=== PATIENT | male | born 1940 | race Caucasian/White ===

== ENCOUNTER 2016-12-17 16:51 | Inpatient (IN) | payer OTHER ==
--- NOTE | ~2016-12-17 | DS ---
Discharge Summary [facility] [address] [place]. [address] NAME: YSABEL DAMON JR : 38 STATUS : DIS IN PAT#: [id number] AGE: 76 ADM/REG DATE : 12/17/16 MR#: [id number] REPORT SERV DATE: 02/02/17 DICTATED BY: KANU FISCHER II DATE: 02/01/17 REPORT STATUS : Draft TRANSCRIBED BY: MODL DATE: 02/01/17 ADMISSION DATE: 12/17/2016 DISCHARGE DATE: 12/20/2016 DISCHARGE DIAGNOSES: 1. Hypercalcemia of malignancy. 2. Acute kidney injury. 3. Failure to thrive with severe protein-calorie malnutrition. 4. Metastatic xqc-kpgaw-pcep lung cancer. 5. Chronic obstructive pulmonary disease with chronic hypoxic respiratory failure. 6. Chronic right loculated effusion. 7. Hypertension. 8. Leukocytosis with likely pneumonia. 9. Anemia of chronic disease. CONSULTATIONS: Hospice. BRIEF HISTORY OF PRESENT ILLNESS: The patient is a 76-year-old male with the above history who presented to [facility] due to weakness, fatigue, dysphagia, weight loss, and falls. For detailed history and physical examination, please see my note from 12/15/2016. HOSPITAL COURSE: After admission, given the patient's elevated white count, he was placed on Levaquin and given IV fluids and pamidronate. His calcium which was 12 on admission trended down slightly and was 10.5 at the time of discharge. The patient had been coughing up greenish sputum, but seemed improved with Levaquin. He continued to be fairly weak with poor appetite, and given his metastatic non-small cell lung cancer and overall poor prognosis, his family elected to consult hospice, and as the patient wanted to go home as soon as possible, he was discharged with Levaquin on hospice. DISCHARGE MEDICATIONS: 1. Robitussin 600 mg p.o. b.i.d. 2. DuoNeb four times a day. 3. Senna 2 tablets p.o. at bedtime. 4. Albuterol inhaled p.r.n. 5. Morphine sulfate 10 mg p.o. q.8 hours every 4 hours p.r.n. 6. Ativan janis 0.5 mg buccal mucosa q.4 hours p.r.n. anxiety. 7. Bactrim DS 1 tablet p.o. b.i.d. x10 days. DISCHARGE INSTRUCTIONS: Per hospice. GRACIELA/SIMIN Kanu Fischer II, MD Discharge Summary [address] [address] NAME: YSABEL DAMON JR : 38 STATUS : DIS IN PAT#: [id number] AGE: 76 ADM/REG DATE : 12/17/16 MR#: [id number] REPORT SERV DATE: 02/02/17 DICTATED BY: KANU FISCHER II DATE: 02/01/17 REPORT STATUS : Draft TRANSCRIBED BY: SIMIN DATE: 02/01/17 / [id number]
--- NOTE | ~2016-12-17 | HP ---
History And Physical [place] [id number] [facility] [place]. [address] NAME: YSABEL DAMON JR : 38 STATUS : ADM Sofi PAT#: [id number] AGE: 76 ADM/REG DATE : 12/17/16 MR#: [id number] REPORT SERV DATE: 12/17/16 DICTATED BY: KANU FISCHER II DATE: 12/17/16 REPORT STATUS : Draft TRANSCRIBED BY: MODL DATE: 12/17/16 DATE OF ADMISSION: 12/17/2016 PRIMARY ONCOLOGIST: Pietro Richard M.D. RADIATION ONCOLOGIST: Wenceslao Rollins M.D. CHIEF COMPLAINT: Weakness, fatigue, dysphagia, weight loss, and falls over the last two weeks. HISTORY OF PRESENT ILLNESS: The patient is a 76-year-old male with a history of non-small- cell lung cancer, COPD, chronic hypoxic respiratory failure, chronic right loculated effusion, and hypertension, who presented to [facility] this evening due to two weeks of progressive decline. The patient notes he has been progressively feeling weaker with difficulty swallowing. He states he can get the food in his mouth too, but cannot seem to actually swallow. He denies feeling any obstruction, he just feels weak. He has occasional emesis, but denies significant nausea or abdominal pain. His family states he is able the eat small amounts and swallow small amounts, but really has had a sharp decline in the last two weeks. He has been losing weight, had multiple falls, and in general, much less active. The patient also notes his breathing has been more labored, though he is still only on his chronic 3 to 4 L nasal cannula. In the ER, he was found to have an ERENDIRA with an elevated calcium of 12, so the Hospitalist Service was consulted for admission. Otherwise, the patient denies any chest pain, palpitations. Denies any blurry vision. REVIEW OF SYSTEMS: 10-point review of systems is otherwise negative except for HPI. PAST MEDICAL HISTORY: 1. Previously stage IB zsb-cwtap-ezbt lung cancer in the right lower lobe, though PET scan done this past October shows a likely new metastatic lesion to the right adrenal gland. Followed by Dr. Rollins and Dr. Pietro Richard. He has received definitive chemoradiation in the past. 2. COPD with chronic hypoxic respiratory failure on 3 to 4 L at home. 3. Hypertension. 4. Chronic right loculated pleural effusion with history of PleurX placement, now removed. 5. Hyperlipidemia. SURGICAL HISTORY: 1. PleurX insertion and removal. 2. Hernia repair. 3. Multiple thoracenteses. FAMILY HISTORY: Brother with COPD. SOCIAL HISTORY: The patient lives with his son and a girlfriend. He is . He previously smoked cigarettes a pack a day for 50 years. Denies any recent alcohol or drug History And Physical [address] [address] NAME: YSABEL DAMON JR : 38 STATUS : ADM Sofi PAT#: [id number] AGE: 76 ADM/REG DATE : 12/17/16 MR#: [id number] REPORT SERV DATE: 12/17/16 DICTATED BY: KANU FISCHER II DATE: 12/17/16 REPORT STATUS : Draft TRANSCRIBED BY: SIMIN DATE: 12/17/16 use. HOME MEDICATIONS: Tylenol, DuoNeb, Symbicort, Marinol, Combivent, morphine. PHYSICAL EXAMINATION: VITAL SIGNS: Blood pressure 126/57, temperature 97.4, pulse 101, respirations 16, O2 saturation 100% on 3 L. GENERAL: The patient is alert and oriented x3, in no acute distress. He is very cachectic, frail, and pale appearing. HEENT: Dry mucous membranes. Pupils are equal, round, reactive to light. Conjunctivae clear. RESPIRATORY: Diminished in the right base. Otherwise, clear to auscultation. Somewhat diminished. Nonlabored breathing. CARDIOVASCULAR: Regular rate and rhythm. No murmurs, rubs, or gallops. ABDOMEN: Soft, nontender, nondistended. Normoactive bowel sounds. EXTREMITIES: No cyanosis, clubbing, but he does have trace pedal edema. SKIN: No lesions, rashes, or wounds. NEURO: No focal deficits other than generalized weakness. LABORATORY DATA: White count 17.3, hemoglobin 8.2, platelets 322. INR 1.1. Influenza screen negative. Urinalysis unremarkable. Sodium 140, potassium 5, chloride 100, CO2 of 31, BUN 63, creatinine 1.57, glucose 100. Calcium 12, magnesium 2.8. Troponin 0.13. EKG with normal sinus rhythm. No ST or T-wave abnormalities. Chest x-ray shows slightly increased chronic right effusion. ASSESSMENT AND PLAN: The patient is a 76-year-old male with, 1. Acute kidney injury likely secondary to hypercalcemia. We will provide IV fluid hydration. Given the patient's already tenuous respiratory status and effusion with likely severe hypoalbuminemia, though this has not been checked yet, we will provide IV albumin infusions as well in addition to a slow infusion of pamidronate. 2. Hypercalcemia likely of malignancy, plan per above. 3. Failure to thrive with severe amounts of protein-calorie malnutrition. Recent weight loss likely related to the hypercalcemia as the patient has been malnourished likely prior to this. We will have Nutrition and Speech Therapy see him. 4. Metastatic [id number]-eerq lung cancer, we will discuss with Oncology. 5. Chronic obstructive pulmonary disease with chronic hypoxic respiratory failure, currently at baseline. We will continue his nebulizers and inhalers. 6. Chronic right loculated effusion. 7. Hypertension. 8. Leukocytosis of uncertain etiology, though we will start the patient on Levaquin for possible pneumonia, though his urine looks clear, and check a procalcitonin. 9. Elevated troponin likely demand ischemia. No chest pain. No EKG changes. 10.The patient is DNR. History And Physical [address] [address] NAME: YSABEL DAMON : 38 STATUS : ADM Sofi PAT#: [id number] AGE: 76 ADM/REG DATE : 12/17/16 MR#: [id number] REPORT SERV DATE: 12/17/16 DICTATED BY: KANU FISCHER II DATE: 12/17/16 REPORT STATUS : Draft TRANSCRIBED BY: MODL DATE: 12/17/16 GRACIELA/SIMIN Kanu Fischer II, MD / [id number] CC: Marisa Menezes Kay
[2016-12-17 15:04] LABS: BASOPHILS 0.1 %; BASOPHILS ABSOLUTE 0.02 10/3/uL (0.0-0.16); EOSINOPHILS 0.2 %; EOSINOPHILS ABSOLUTE 0.03 10/3/uL (0.0-0.53); HEMATOCRIT 27.9 % (40.0-51.0); HEMOGLOBIN 8.2 g/dL (13.6-17.8); IMMATURE GRANULOCYTES 0.4 %; IMMATURE GRANULOCYTES ABSOLUTE 0.07 10/3/uL (0.0-0.11); LYMPHOCYTES 4.9 %; LYMPHOCYTES ABSOLUTE 0.84 10/3/uL (0.67-4.30); MEAN CORPUS HGB CONC 29.4 g/dL (32.0-36.0); MEAN CORPUSCULAR HEMOGLOB 23.6 pg (26.0-34.0); MEAN CORPUSCULAR VOLUME 80.4 fL (80-100); MEAN PLATELET VOLUME 9.1 fL (9.2-13.0); MONOCYTES 3.3 %; MONOCYTES ABSOLUTE 0.57 10/3/uL (0.21-1.20); NEUTROPHILS 91.1 %; NEUTROPHILS ABSOLUTE 15.73 10/3/uL (2.02-8.40); PLATELET COUNT 322 10/3/uL (150-400); RED CELL COUNT 3.47 10/6/uL (4.7-6.1)
[2016-12-17 15:05] LABS: ER CBC TAT 0 Hrs 08 Mins; MANUAL DIFF NO %; WHITE BLOOD CELLS 17.3 10/3/uL (4.5-10.5)
[2016-12-17 15:08] LABS: WBC (NOT ORDERED) (RFLEX) 0 (0-5)
[2016-12-17 15:11] LABS: INTERNATIONAL NORMAL RATI 1.1 UNITS (-); PROTIME (NOT ORD) 14.5 SEC (12.0-14.5)
[2016-12-17 15:19] LABS: CHLORIDE, SERUM 100 MMOL/L (96-112); CREATININE 1.57 MG/DL (0.70-1.30); GFR AFRICAN AMERICAN 49 ML/MIN (>=60); GFR NON AFRICAN AMERICAN 42 ML/MIN (>=60); GLUCOSE, SERUM 100 MG/DL (60-99); SODIUM, SERUM 140 MMOL/L (135-148)
[2016-12-17 15:20] LABS: BUN (BLOOD UREA NITROGEN) 63 MG/DL (6-23); CO2 (CARBON DIOXIDE) 31 MMOL/L (24-34)
[2016-12-17 15:26] LABS: INFLUENZA A SCREEN NEGATIVE (NEGATIVE); INFLUENZA B SCREEN NEGATIVE (NEGATIVE)
[2016-12-17 15:32] LABS: ASCORBIC ACID (UR NOT ORDER) NEG (NEG); BILIRUBIN, URINE NEGATIVE (NEG); ER URINALYSIS TAT 0 Hrs 25 Mins; KETONE, URINE TRACE MG/DL (NEG); LEUKOCYTE ESTERASE(NOT OR NEG (NEG); NITRITE (URINE) NEG (NEG)
[2016-12-17 15:33] LABS: TROPONIN I 0.13 NG/ML (<0.05)
[2016-12-17 15:34] LABS: CHEST PAIN PROFILE TAT 0 Hrs 36 Mins
[~2016-12-17 16:51] MED LIST: ACET500CAP PO; BLOOD PRESSURE RX PO; BUM1 PO; COMBIVENT RESPIM4 GM INH; COMP10B PO; COUGH PO; COZ25 PO; DEX4 PO; DUONEB INH; HUMI PO; LEVAQUIN750 MG PO; LOP25 PO; NORCO1 TA1 PO; NORV25 PO; NYQUIL COLD PO; NYQUIL PO; OCEAN NAS; OXYCOD PO; P10 PO; P20 PO; P5 PO; PCET PO; PROAIR HFA INH; PROVENTSOL INH; PROVHFA PO; SPIRIVA INH; SYMBICORT 160/41 INH INH; SYMBICORT 160/41 INH PO; THERAFLU PO; ZOFRANODT8 PO; ZYRTEC ALLGY10 MG PO; [UNRECOGNIZED DRUG - OTHER] PO
[2016-12-17] MEDS ORDERED: DUONEB INH (17:27)
[2016-12-17] MEDS ORDERED: MSIMMR15 PO (17:28)
[2016-12-17] MEDS ORDERED: ACET500CAP PO (17:29)
[2016-12-17] MEDS ORDERED: COMBIVENT RESPIM4 GM INH (17:29)
[2016-12-17] MEDS ORDERED: SYMBICORT 160/41 INH INH (17:29)
[2016-12-17] MEDS ORDERED: MARI2.5 PO (17:30)
[2016-12-18 05:41] LABS: BASOPHILS 0.1 %; BASOPHILS ABSOLUTE 0.02 10/3/uL (0.0-0.16); EOSINOPHILS 0.3 %; EOSINOPHILS ABSOLUTE 0.06 10/3/uL (0.0-0.53); IMMATURE GRANULOCYTES 0.3 %; IMMATURE GRANULOCYTES ABSOLUTE 0.05 10/3/uL (0.0-0.11); LYMPHOCYTES 5.1 %; MEAN CORPUS HGB CONC 29.3 g/dL (32.0-36.0); MEAN CORPUSCULAR HEMOGLOB 23.8 pg (26.0-34.0); MEAN CORPUSCULAR VOLUME 81.3 fL (80-100); MONOCYTES 4.8 %; MONOCYTES ABSOLUTE 0.84 10/3/uL (0.21-1.20); NEUTROPHILS 89.4 %; NEUTROPHILS ABSOLUTE 15.81 10/3/uL (2.02-8.40); RBC DISTRIBUTION WIDTH 18.9 % (12.0-16.0); RED CELL COUNT 2.94 10/6/uL (4.7-6.1); WHITE BLOOD CELLS 17.7 10/3/uL (4.5-10.5)
[2016-12-18 05:43] LABS: HEMATOCRIT 23.9 % (40.0-51.0); MANUAL DIFF NO %; PLATELET COUNT 216 10/3/uL (150-400)
[2016-12-18 05:58] LABS: A/G RATIO 0.4 (0.7-1.9); ALBUMIN 2.2 G/DL (3.5-5.0); CALCIUM, SERUM 11.2 MG/DL (8.5-10.4); CHLORIDE, SERUM 105 MMOL/L (96-112); CO2 (CARBON DIOXIDE) 28 MMOL/L (24-34); CREATININE 1.24 MG/DL (0.70-1.30); GFR AFRICAN AMERICAN 65 ML/MIN (>=60); GFR NON AFRICAN AMERICAN 56 ML/MIN (>=60); GLUCOSE, SERUM 106 MG/DL (60-99); POTASSIUM, SERUM 4.4 MMOL/L (3.5-5.3); PREALBUMIN 4.6 MG/DL (17.0-43.0); SGOT(AST) 33 U/L (5-40); SGPT(ALT) 19 U/L (5-65); SODIUM, SERUM 140 MMOL/L (135-148); TOTAL BILIRUBIN 0.5 MG/DL (0-1.2); TOTAL PROTEIN 7.2 G/DL (6.0-8.5)
[2016-12-18 06:00] LABS: ALKALINE PHOSPHATASE 133 U/L (45-117); BUN (BLOOD UREA NITROGEN) 56 MG/DL (6-23); PHOSPHORUS, SERUM 3.2 MG/DL (2.5-4.5)
[2016-12-18 19:44] LABS: TROPONIN I 0.06 NG/ML (<0.05)
[2016-12-18 20:09] LABS: PROCALCITONIN 13.81 ng/mL (<0.5)
[2016-12-19 06:22] LABS: BASOPHILS 0 %; EOSINOPHILS 0.1 %; EOSINOPHILS ABSOLUTE 0.02 10/3/uL (0.0-0.53); IMMATURE GRANULOCYTES 0.3 %; IMMATURE GRANULOCYTES ABSOLUTE 0.04 10/3/uL (0.0-0.11); LYMPHOCYTES 3.6 %; LYMPHOCYTES ABSOLUTE 0.57 10/3/uL (0.67-4.30); MEAN CORPUSCULAR HEMOGLOB 24.4 pg (26.0-34.0); MEAN CORPUSCULAR VOLUME 81.2 fL (80-100); MONOCYTES 3.5 %; MONOCYTES ABSOLUTE 0.56 10/3/uL (0.21-1.20); NEUTROPHILS 92.5 %; NEUTROPHILS ABSOLUTE 14.71 10/3/uL (2.02-8.40); PLATELET COUNT 172 10/3/uL (150-400); WHITE BLOOD CELLS 15.9 10/3/uL (4.5-10.5)
[2016-12-19 06:24] LABS: HEMATOCRIT 20.3 % (40.0-51.0); HEMOGLOBIN 6.1 g/dL (13.6-17.8)
[2016-12-19 06:27] LABS: MANUAL DIFF NO %
[2016-12-19 06:33] LABS: CALCIUM, SERUM 10.5 MG/DL (8.5-10.4); CHLORIDE, SERUM 108 MMOL/L (96-112); CO2 (CARBON DIOXIDE) 29 MMOL/L (24-34); CREATININE 1.01 MG/DL (0.70-1.30); GFR AFRICAN AMERICAN 83 ML/MIN (>=60); GFR NON AFRICAN AMERICAN 71 ML/MIN (>=60); POTASSIUM, SERUM 4.4 MMOL/L (3.5-5.3); SODIUM, SERUM 144 MMOL/L (135-148)
[2016-12-19 06:34] LABS: BUN (BLOOD UREA NITROGEN) 39 MG/DL (6-23); GLUCOSE, SERUM 84 MG/DL (60-99)
[2016-12-20 06:15] LABS: BASOPHILS 0 %; BASOPHILS ABSOLUTE 0.01 10/3/uL (0.0-0.16); EOSINOPHILS 0 %; IMMATURE GRANULOCYTES 0.4 %; IMMATURE GRANULOCYTES ABSOLUTE 0.09 10/3/uL (0.0-0.11); LYMPHOCYTES 3.8 %; LYMPHOCYTES ABSOLUTE 0.81 10/3/uL (0.67-4.30); MEAN CORPUS HGB CONC 30.3 g/dL (32.0-36.0); MEAN CORPUSCULAR HEMOGLOB 24.7 pg (26.0-34.0); MEAN CORPUSCULAR VOLUME 81.4 fL (80-100); MEAN PLATELET VOLUME 9.4 fL (9.2-13.0); MONOCYTES 4.7 %; MONOCYTES ABSOLUTE 1.01 10/3/uL (0.21-1.20); NEUTROPHILS 91.1 %; NEUTROPHILS ABSOLUTE 19.44 10/3/uL (2.02-8.40); PLATELET COUNT 176 10/3/uL (150-400); RBC DISTRIBUTION WIDTH 18.9 % (12.0-16.0); WHITE BLOOD CELLS 21.4 10/3/uL (4.5-10.5)
[2016-12-20 06:18] LABS: HEMATOCRIT 26.7 % (40.0-51.0); HEMOGLOBIN 8.1 g/dL (13.6-17.8); RED CELL COUNT 3.28 10/6/uL (4.7-6.1)
[2016-12-20 06:19] LABS: MANUAL DIFF NO %
[2016-12-20 06:34] LABS: BUN (BLOOD UREA NITROGEN) 41 MG/DL (6-23); CALCIUM, SERUM 10.5 MG/DL (8.5-10.4); CHLORIDE, SERUM 110 MMOL/L (96-112); CO2 (CARBON DIOXIDE) 26 MMOL/L (24-34); GFR AFRICAN AMERICAN 75 ML/MIN (>=60); GFR NON AFRICAN AMERICAN 64 ML/MIN (>=60); POTASSIUM, SERUM 4.8 MMOL/L (3.5-5.3); SODIUM, SERUM 144 MMOL/L (135-148)
[2016-12-20 06:35] LABS: GLUCOSE, SERUM 107 MG/DL (60-99)
[2016-12-20 10:42] LABS: PROCALCITONIN 6.85 ng/mL (<0.5)
[2016-12-20] MEDS ORDERED: GGEXPUD PO/LIQ (11:07)
[2016-12-20] MEDS ORDERED: SENTAB PO (11:08)
[2016-12-20] MEDS ORDERED: ALBUTEROL0.083 % INH (11:09)
[2016-12-20] MEDS ORDERED: MORPHINE S20 MG/5 ML PO ×2 (11:10)
[2016-12-20] MEDS ORDERED: BACTRIM DS1 TAB PO (11:12)
[2016-12-20] MEDS ORDERED: ATIVAN BUC (11:12)
[2016-12-20] MEDS ORDERED: DUONEB INH (11:19)
== END 2016-12-20 12:01 | disposition hospice, home (50) | DRG 871 ==
LOC: ER 16:51 → CDU2 20:27 → 4EA 22:25
PROVIDERS: Internal Medicine; Nurse Practitioner; Nurse Practitioner Family
DX: A41.9 Sepsis, unspecified organism (principal); E43 Unspecified severe protein-calorie malnutrition; J96.21 Acute and chronic respiratory failure with hypoxia; N17.9 Acute kidney failure, unspecified; J18.9 Pneumonia, unspecified organism; C34.90 Malignant neoplasm of unspecified part of unspecified bronchus or lung; J44.9 Chronic obstructive pulmonary disease, unspecified; E83.52 Hypercalcemia; R62.7 Adult failure to thrive; I10 Essential (primary) hypertension; Z66 Do not resuscitate
CPT/HCPCS: 36415; 71010; 80048; 80053; 81001; 82330; 83735; 84100; 84134; 84145; 84443; 84484; 85025; 85610; 85730; 86850; 86900; 86901; 86920; 87804; 92610-GN; 93005; 94640; 99285; A9270-GY; J1170; J1956; J2405; J2430; P9016; P9047